=== PATIENT | female | born 2000 | race Caucasian/White ===

== ENCOUNTER 2023-11-01 06:59 | Emergency (ER) | payer BC, SELFPAY ==
[2023-11-01] VITALS (8 sets, daily range): BP systolic 95–113; BP diastolic 57–68; BMI 36.0
--- NOTE | 2023-11-01 07:23 | ED.GENMED ---
History of Present Illness
General
Chief Complaint: Chest Pain
Source: patient
Exam Limitations: none
Time Seen by Provider: 11/01/23 07:03
Nursing documentation reviewed up to this point in time: agreed with
History of Present Illness
History of Present Illness:
23-year-old female past medical history of frequent migraines GERD presenting to the emergency department today with concerns of central chest ache described as dull with some radiation to the back associated nausea vomited 1 time prior to arrival
had some mild shortness of breath initially but not ongoing. Denies any recent fevers chills upper respiratory symptoms was doing some heavy lifting yesterday. Does have a history of costochondritis.
Review of Systems
Review of Systems
Allergies reviewed?: Yes
All Other Systems: ROS reviewed and negative except as documented in HPI and ROS
Phy Exam
Physical Exam
Physical Exam:
GENERAL: Alert , in no apparent distress
EYE: pupils equal and reactive
NECK: Supple, no significant adenopathy.
ENT: o/p clr, mmm.
CARDIAC: Chest pain reproducible to palpation to the central chest no overlying skin changes regular rate and rhythm .
LUNGS: Clear breath sounds bilaterally, no acute respiratory distress, no wheezes/rales/rhonchi
ABDOMEN: Soft, without focal tenderness, no r/g, no cvat
NEUROLOGICAL: Alert and oriented, no focal neuro deficits
SKIN: Warm and dry, skin intact.
MUSCULOSKELETAL: No edema, well perfused.
PSYCH: Normal and appropriate interaction.
Scores
Heart Score for Chest Pain Patients
STEMI patient?: No
History: Slightly or Non-Suspicious
ECG: Normal
Age: </= 45 years
Risk Factors: No Risk Factors
Troponin: </= Normal Limit
Heart Score for Chest Pain Patients: 0
Heart Score Risk: 2.5% MACE over next 6 weeks
Course
Orders/Labs/Results
Orders:
Orders
11/01/23 07:01
EKG [Electrocardiogram (*1)] Urgent
Reason for Study: Chest Pain
11/01/23 07:02
EKG- Treatment ONCE
11/01/23 07:04
CR Chest - 2 Views Urgent
Comment:
Reason For Exam: chest pain
11/01/23 07:19
Famotidine [Pepcid] 20 mg IV NOW STA
Ketorolac [Toradol] 15 mg IV NOW STA
11/01/23 07:21
CMP [Comprehensive Metabolic Panel] Urgent
Complete Blood Count/With Diff Urgent
Lipase Urgent
Comment: ADD ON
Troponin I Urgent
11/01/23 07:29
Add On- LAB Urgent
Tests Added?: lipase
11/01/23 10:35
EKG [Electrocardiogram (*1)] Urgent
Reason for Study: Chest Pain
Comment: 2nd trop
EKG- Treatment ONCE
11/01/23 10:46
Troponin I Urgent
Abnormal Lab Results
11/01/23
07:21
Hgb 11.9 L g/dL
(12.0-16.0)
Hct 34.9 L %
(37.0-47.0)
MCV 79.7 L fL
(81.0-99.0)
MPV 10.9 H fL
(7.4-10.4)
Absolute Lymphs (auto) 3.5 H 10^3/uL
(1.2-3.4)
BUN 21 H mg/dl
(7-17)
Glucose 126 H mg/dl
(70-99)
AST 55 H U/L
(14-36)
11/01/23 07:21
11/01/23 07:21
Vital Signs
Initial and Last Documented VS:
Initial Vital Signs
Temp Pulse Resp BP Pulse Ox
97.8 F 73 18 113/65 99
11/01/23 07:02 11/01/23 07:02 11/01/23 07:02 11/01/23 07:02 11/01/23 07:02
Last Documented Vital Signs
Temp Pulse Resp BP Pulse Ox
97.8 F 85 21 100/57 99
11/01/23 07:12 11/01/23 08:15 11/01/23 08:15 11/01/23 08:00 11/01/23 07:14
MDM/Problems Addressed
MDM/Problems Addressed:
23-year-old female presenting to the emergency department today with concerns of a central chest dull ache with some radiation to the back had initial nausea and 1 episode of vomiting. Mildly short of breath initially but none ongoing. She does
take control pill but that it is progesterone only no recent trauma surgery immobilization or other clot risk factors no leg swelling. Clinically low risk for PE EKG normal heart rate normal pulse ox 99%. Chest pain is reproducible to
palpation. Troponin negative x 2 labs unremarkable chest x-ray normal. Symptoms resolved after receiving Toradol. Stable for outpatient management likely costochondritis. Return precautions given.
*Critical Care Note
Total Time (30-74mins, 75-104mins- exclusive of procedures): Not Applicable
ED Attending Note
-
Portions of this chart may have been created with voice recognition software.� Occasional wrong word or��sound alike� substitutions may have occurred due to the inherent limitations of voice recognition software.
Discharge Plan
Departure
Patient Disposition: Home (Routine Discharge)
Date of Disposition: 11/01/23
Time of Disposition: 11:16
Patient with high blood pressure during this ER visit?: No
Condition: Good
Covid-19: Not Applicable
Discharge Problem:
Chest pain
Instructions: Chest Pain That Is Not Caused by the Heart (DC)
Referrals:
Panda Bailey DO [Family Provider] -
Activity Restrictions/Additional Instructions:
You came to the emergency department today with concerns of chest discomfort. Here you had a reassuring assessment. Please follow up closely with the primary care doctor. Return to the emergency department for any worsening, new or concerning
symptoms.
Interventions
Interventions:
*Risk Screen - Suicide Last Done: 11/01/23 07:02
*General Assessment Last Done: 11/01/23 07:02
*Neglect/Abuse Screening Last Done: 11/01/23 07:02
ED- Fall Risk Assessment Last Done: 11/01/23 07:14
*ED COVID-19 Vaccine History Last Done: 11/01/23 07:02
ED- Cardiac Assessment Last Done: 11/01/23 07:14
Discharge Date and Time
Print Language: UGANDAN
[2023-11-01] MEDS: PEPCID 20 MG IV (07:25)
[2023-11-01] MEDS: TORADOL 15 MG IV (07:25)
[2023-11-01 07:35] LABS: % Basophils 0.3 % (0-2); % Eosinophils 1.1 % (0-6); % Immature Granulocytes 0.3 % (0-0.5); % Lymphocytes 32.4 % (20.5-51.1); % Monocytes 5.9 % (1.7-9.3); Absolute Eosinophils 0.1 10^3/uL (0-0.7); Absolute Lymphocytes 3.5 10^3/uL (1.2-3.4); Absolute Monocytes 0.6 10^3/uL (0.1-0.6); Absolute Neutrophils 6.4 10^3/uL (1.4-6.5); Hematocrit 34.9 % (37.0-47.0); Hemoglobin 11.9 g/dL (12.0-16.0); Mean Corp Hgb Conc. 34.1 g/dL (33.0-37.0); Mean Corpuscular Hgb 27.2 pg (27.0-31.0); Mean Corpuscular Volume 79.7 fL (81.0-99.0); Mean Platelet Volume 10.9 fL (7.4-10.4); Nucleated Red Blood Cells % 0 %; Platelet Count 241 10^3/uL (130-400); Red Blood Cell Count 4.38 10^6/uL (4.20-5.40); White Blood Cell Count 10.7 10^3/uL (4.8-10.8)
[2023-11-01 07:56] LABS: ALT (SGPT) 31 U/L (0-35); AST (SGOT) 55 U/L (14-36); Alkaline Phosphatase 105 U/L (38-126); Blood Urea Nitrogen 21 mg/dl (7-17); Calcium 9.4 mg/dl (8.4-10.2); Carbon Dioxide 22 mmol/L (22-30); Chloride 106 mmol/L (98-107); Estimated Creatinine Clearance > 125 ml/min; Glucose 126 mg/dl (70-99); Lipase 103 U/L (23-300); Sodium 141 mmol/L (135-145); Total Bilirubin 0.6 mg/dl (0.2-1.3); Total Protein 6.4 g/dl (6.3-8.2); eGFR > 60.00
[2023-11-01 08:08] LABS: Troponin I < 0.012 ng/ml
[2023-11-01 11:24] LABS: Troponin I < 0.012 ng/ml
--- NOTE | 2023-11-01 11:58 | EDRN ---
Reviewed discharge instructions with patient. Verbalized understanding.
== END 2023-11-01 12:07 | disposition home or self-care (01) ==
LOC: EMR 06:59
PROVIDERS: Emergency Medicine; Physician Assistant; EMERGENCY PHYSICIAN Emergency Medicine; FAMILY PHYSICIAN Family Medicine
DX: R07.89 Other chest pain (principal); K21.9 Gastro-esophageal reflux disease without esophagitis
CPT/HCPCS: 99285; 96374; 96375; 71046; 80053; 83690; 84484; 85025; 93005

== ENCOUNTER 2024-08-05 22:21 | Emergency (ER) | payer BC, SELFPAY ==
[2024-08-05 22:22] VITALS: BP 156/86
[2024-08-05 22:38] LABS: % Basophils 0.6 % (0-2); % Eosinophils 1.5 % (0-6); % Immature Granulocytes 0.1 % (0-0.5); % Lymphocytes 44.6 % (20.5-51.1); % Monocytes 6.8 % (1.7-9.3); % Neutrophils 46.4 % (42.2-75.2); Absolute Basophils 0.1 10^3/uL (0-0.2); Absolute Eosinophils 0.1 10^3/uL (0-0.7); Absolute Lymphocytes 3.6 10^3/uL (1.2-3.4); Absolute Monocytes 0.5 10^3/uL (0.1-0.6); Absolute Neutrophils 3.7 10^3/uL (1.4-6.5); Hematocrit 36.9 % (37.0-47.0); Hemoglobin 12.8 g/dL (12.0-16.0); Mean Corp Hgb Conc. 34.7 g/dL (33.0-37.0); Mean Corpuscular Hgb 28.4 pg (27.0-31.0); Mean Corpuscular Volume 81.8 fL (81.0-99.0); Mean Platelet Volume 10.6 fL (7.4-10.4); Nucleated Red Blood Cells % 0 %; Platelet Count 240 10^3/uL (130-400); Red Blood Cell Count 4.51 10^6/uL (4.20-5.40); Red Cell Dist. Width 12.4 % (11.5-14.5)
[2024-08-05 22:50] LABS: HCG, Serum Qualitative Screen Negative
[2024-08-05 23:00] LABS: ALT (SGPT) 18 U/L (0-35); AST (SGOT) 21 U/L (14-36); Albumin 4.7 g/dl (3.5-5.0); Alkaline Phosphatase 77 U/L (38-126); Blood Urea Nitrogen 11 mg/dl (7-17); Calcium 9.6 mg/dl (8.4-10.2); Carbon Dioxide 26 mmol/L (22-30); Chloride 106 mmol/L (98-107); Glucose 102 mg/dl (70-99); Lipase 103 U/L (23-300); Potassium 4.1 mmol/L (3.5-5.1); Sodium 140 mmol/L (135-145); Total Bilirubin 0.5 mg/dl (0.2-1.3); Total Protein 7.6 g/dl (6.3-8.2); eGFR > 60.00
[2024-08-06 01:24] VITALS: BMI 36.4
[2024-08-06 01:29] VITALS: BP 119/85
[2024-08-06 03:34] VITALS: BP 122/76
--- NOTE | 2024-08-06 03:36 | ED.GENMED ---
History of Present Illness
General
Chief Complaint: Abdominal Pain
Source: patient
Exam Limitations: none
Time Seen by Provider: 08/06/24 01:27
Nursing documentation reviewed up to this point in time: agreed with
History of Present Illness
History of Present Illness:
23-year-old female with history GERD who presents to the emergency department with severe upper abdominal pain. Patient states symptoms started around 10 PM this evening after eating a bagel with light cream cheese. She reports associated nausea
although no vomiting. At time of evaluation�symptoms have resolved completely. Patient reports very similar episode of pain last night which woke her from sleep in the middle the night and included severe upper abdominal pain associated with
nausea and vomiting. This occurred following a dinner of fish and chips and ice cream.
Patient denies any associated fever or chills. No chest pain, shortness of breath, or radiation of pain to back. No diarrhea, constipation, or dysuria.
Patient believes that she was told many years ago that she may have gallstones.
Review of Systems
Review of Systems
Allergies reviewed?: Yes
All Other Systems: ROS reviewed and negative except as documented in HPI and ROS
Phy Exam
Physical Exam
Physical Exam:
Vitals: Patient's vital signs are stable. Afebrile
General: Patient is well appearing, no acute distress. Nontoxic appearing
Skin: Warm and dry, no rashes or lesions
Head: Normocephalic, atraumatic
Eyes: Sclera nonicteric.
Throat: Protecting airway
Neck: Normal ROM, no cervical spine tenderness, no meningismus
Cardiac: Regular rate and rhythm, no murmurs.
Pulm: Normal respiratory effort, no wheezes, rales, rhonchi heard on exam
Abdomen: Abdomen soft and nontender. No tenderness in epigastric region or right upper quadrant. Negative Strong sign. No tenderness to McBurney's point.
Extremities: No evidence of cyanosis or edema. Palpable DP pulses bilaterally
Neuro: AAOx3. Grossly intact
Psychiatric: Normal affect.
Course
Orders/Labs/Results
Orders:
Orders
08/05/24 22:25
Test Result ONCE
08/05/24 22:29
Complete Blood Count/With Diff Urgent
Comprehensive Metabolic Panel Urgent
HCG, Serum Qualitative Screen Urgent
Lipase Urgent
08/06/24 02:00
US Abdomen Complete/Upper Urgent
Comment: hx gallstones
Reason For Exam: Epigastric/ right upper quadrant pain, +N/V
Abnormal Lab Results
08/05/24
22:29
Hct 36.9 L %
(37.0-47.0)
MPV 10.6 H fL
(7.4-10.4)
Absolute Lymphs (auto) 3.6 H 10^3/uL
(1.2-3.4)
Glucose 102 H mg/dl
(70-99)
08/05/24 22:29
08/05/24 22:29
Vital Signs
Initial and Last Documented VS:
Initial Vital Signs
Temp Pulse Resp BP Pulse Ox
98.2 F 84 18 156/86 96
08/05/24 22:22 08/05/24 22:22 08/05/24 22:22 08/05/24 22:22 08/05/24 22:22
Last Documented Vital Signs
Temp Pulse Resp BP Pulse Ox
98.2 F 72 16 122/76 100
08/05/24 22:22 08/06/24 03:34 08/06/24 01:29 08/06/24 03:34 08/06/24 03:34
MDM/Problems Addressed
Differential Diagnosis Includes:
Not limited to: Biliary colic, acute cholecystitis, choledocholithiasis, pancreatitis, GERD, gastritis, etc.
MDM/Problems Addressed:
23-year-old female who presents with postprandial upper abdominal discomfort associated with nausea, vomiting which has resolved by my assessment. Patient had 2 episodes of upper abdominal pain, 1 last night and 1 today. She is completely
asymptomatic without pain at this time. No associated fever, chest pain, shortness of breath. Patient mildly hypertensive on arrival although improved by my assessment. Her vital signs are otherwise stable and she is afebrile. Physical exam as
above. Symptoms very consistent with biliary colic. Other considerations include acute cholecystitis, pancreatitis, GERD, etc. Basic labs were sent prior to my evaluation. CBC without acute abnormalities, no leukocytosis. Chemistry unremarkable
without any elevation in LFTs and lipase normal. Will obtain abdominal ultrasound and reassess. Patient declines any analgesia at this time.
Update: Abdominal ultrasound reveals gallstone filled gallbladder without any pericholecystic fluid or other evidence of acute cholecystitis. On reassessment�patients abdomen remains completely soft and nontender. She has been asymptomatic in the
emergency department and afebrile. Symptoms most consistent with biliary colic. Given patient is afebrile with no leukocytosis or LFT elevation and no imaging findings consistent with acute cholecystitis�feel stable for discharge home with
outpatient general surgery follow-up. Patient comfortable with this plan. Discussed strict return precautions and advised low-fat diet.
Chronic conditions affecting care:
History of gallstones
Acute Exacerbation and/or Progression of Chronic Illness:
Acute exacerbation of biliary colic
*Radiology
Radiology exam reviewed: radiology read reviewed
*Pulse Oximetry
SaO2: 100
Oxygen Mode of Delivery: Room air
Patient hypoxic: no
*EKG
Interpreted by ED Provider?: NA
*Hand Cigar Making Supervisor Interpretation
Rate: Hand Cigar Making Supervisor- N/A
*Critical Care Note
Total Time (30-74mins, 75-104mins- exclusive of procedures): Not Applicable
Patient Management
Escalation/DeEscalation of care consider admission/obs:
Considered admission however patient symptoms have completely resolved she is normal white blood cell count and LFTs and no evidence of infection on ultrasound�feel stable for discharge home with outpatient general surgery
ED Attending Note
-
Portions of this chart may have been created with voice recognition software.� Occasional wrong word or��sound alike� substitutions may have occurred due to the inherent limitations of voice recognition software.
Discharge Plan
Departure
Patient Disposition: Home (Routine Discharge)
Date of Disposition: 08/06/24
Time of Disposition: 03:24
Patient with high blood pressure during this ER visit?: Yes
Condition: Good
Covid-19: Not Applicable
Discharge Problem:
Biliary colic
Instructions: Gallstones (DC), Low-fat diet, BLOOD PRESSURE
Prescriptions:
No Action
sertraline [Zoloft] 100 mg Tablet
200 mg PO HS
norethindrone (contraceptive) [Norlyda] 0.35 mg Tablet
0.35 mg PO DAILY
Referrals:
Juan Smith MD [Active, Surgical] - Next open appointment
Panda Bailey DO [Family Provider, Family Practice]
Activity Restrictions/Additional Instructions:
RETURN TO THE EMERGENCY DEPARTMENT WITH ANY PERSISTENT/SEVERE UPPER ABDOMINAL PAIN, FEVERS, INTRACTABLE NAUSEA/VOMITING, SEVERE BACK PAIN, WORSENING CURRENT SYMPTOMS, OR ANY OTHER CONCERNS
- As discussed�your ultrasound revealed numerous gallstones today. This is likely the cause of your symptoms.
- You should adhere to a low-fat diet. Stay well-hydrated.
- Follow-up with primary care and general surgery for further evaluation/management to ensure that symptoms are improving. Contact information for a general surgeon has been provided for you above.
Monitor your symptoms closely and return to the emergency department with any acute worsening/new symptoms or any other concerns
Interventions
Interventions:
*Risk Screen - Suicide Last Done: 08/06/24 01:17
*General Assessment Last Done: 08/05/24 22:22
*Neglect/Abuse Screening Last Done: 08/06/24 01:17
*ED- Fall Risk Assessment Last Done: 08/06/24 01:17
*ED COVID-19 Vaccine History Last Done: 08/06/24 01:17
MV-Qkbfac-Wroydaznkf Assessment Last Done: 08/06/24 01:17
Discharge Date and Time
Print Language: UPPER SORBIAN
== END 2024-08-06 04:00 | disposition home or self-care (01) ==
LOC: EMR 22:21
PROVIDERS: Emergency Medicine; EMERGENCY PHYSICIAN Emergency Medicine; FAMILY PHYSICIAN Family Medicine
DX: K80.70 Calculus of gallbladder and bile duct without cholecystitis without obstruction (principal); K21.9 Gastro-esophageal reflux disease without esophagitis
CPT/HCPCS: 99284; 76700; 80053; 83690; 84703; 85025

== ENCOUNTER 2024-10-05 23:10 | Emergency (ER) | payer BC, SELFPAY ==
[2024-10-05 23:13] VITALS: BP 123/71
[2024-10-05 23:24] LABS: Hematocrit 36.5 % (37.0-47.0); Hemoglobin 12.9 g/dL (12.0-16.0); Mean Corp Hgb Conc. 35.3 g/dL (33.0-37.0); Mean Corpuscular Volume 79.7 fL (81.0-99.0); Nucleated Red Blood Cells % 0 %; Platelet Count 264 10^3/uL (130-400); Red Cell Dist. Width 12.5 % (11.5-14.5)
[2024-10-05 23:38] LABS: HCG, Serum Qualitative Screen Negative
[2024-10-05 23:42] LABS: ALT (SGPT) 18 U/L (0-35); AST (SGOT) 23 U/L (14-36); Albumin 4.7 g/dl (3.5-5.0); Alkaline Phosphatase 89 U/L (38-126); Blood Urea Nitrogen 18 mg/dl (7-17); Calcium 9.2 mg/dl (8.4-10.2); Carbon Dioxide 23 mmol/L (22-30); Chloride 108 mmol/L (98-107); Glucose 132 mg/dl (70-99); Lipase 175 U/L (23-300); Potassium 3.9 mmol/L (3.5-5.1); Sodium 140 mmol/L (135-145); Total Protein 7.4 g/dl (6.3-8.2); eGFR > 60.00
--- NOTE | 2024-10-06 00:05 | ED.GENMED ---
History of Present Illness
<Shailesh Madera MD, Resident - Last Filed: 10/06/24 00:53>
General
Chief Complaint: Abdominal Pain
Source: patient
Time Seen by Provider: 10/06/24 00:04
History of Present Illness
History of Present Illness:
Patient is a 24-year-old female with a history of recently seen in July of this year acute abdominal pain later found to be cholelithiasis. She has a past medical history of cholelithiasis and endometriosis. Patient was in her normal state of
health this evening until she had a large serving at a restaurant of possibly fatty food. She had a chicken Parmesan that was requested to be made without frying and she had a large portion of chocolate cake. On the way home she had acute
abdominal pain rated at a 10 out of 10 similar to prior to the pain that brought her to the emergency department in July. Her family brought her to the emergency department and on the way to the emergency department the pain subsided and completely
resolved. During the episode of pain she had a chest tightness and pain that radiated throughout the upper back and mid abdominal region. She did not have any vomiting or diarrhea. During her episode of abdominal pain she was bloated and her
abdomen was noticeably larger than her usual baseline. As the pain resolves her bloating and abdominal size decreased. She is able to pass flatus normally.
Review of Systems
<Shailesh Madera MD, Resident - Last Filed: 10/06/24 00:53>
Review of Systems
Constitutional: Reports no symptoms
EENT: Reports no symptoms
Respiratory: Reports no symptoms
Cardiac: Reports no symptoms
ABD/GI: Reports abdominal pain ( Initially 10 out of 10 pain now rated at a 1 out of 10)
: Reports no symptoms
Musculoskeletal: Reports no symptoms
Skin: Reports no symptoms
Neurological: Reports no symptoms
Endocrine: Reports no symptoms
Hematologic/Lymphatic: Reports no symptoms
Psychiatric: Reports no symptoms
Phy Exam
<Shailesh Madera MD, Resident - Last Filed: 10/06/24 00:53>
General Physical Exam
General Presentation: well appearing and no apparent distress
General age: appears stated age
General Skin: warm and dry
General Habitus: normal
General Mental: alert
General Hydration: appears well hydrated
ENT Exam
ENT Exam: EOMI
Eye Exam
Eye Exam: PERRL
Pulmonary Exam
Pulmonary Exam: lungs clear, no respiratory distress, no rales, chest non tender, no crackles, no rhonchi, no stridor, no wheezing and no cough
Cough: no cough
Gastrointestinal Exam
Gastrointestinal Exam: normal bowel sounds, non tender, soft, no organomegaly, no pulsatile mass, non distended and no cva tenderness
Auscultation of Abdomen: normal
Psychiatric Exam
Psychiatric Exam: normal mood/affect
Course
<Shailesh Madera MD, Resident - Last Filed: 10/06/24 00:53>
Orders/Labs/Results
Orders:
Orders
10/05/24 23:15
Test Result ONCE
10/05/24 23:19
Complete Blood Count/With Diff Urgent
Comprehensive Metabolic Panel Urgent
HCG, Serum Qualitative Screen Urgent
Comment: Notify provider if positive test present
Lipase Urgent
Abnormal Lab Results
10/05/24
23:19
WBC 13.1 H 10^3/uL
(4.8-10.8)
Hct 36.5 L %
(37.0-47.0)
MCV 79.7 L fL
(81.0-99.0)
Absolute Neuts (auto) 6.7 H 10^3/uL
(1.4-6.5)
Absolute Lymphs (auto) 5.3 H 10^3/uL
(1.2-3.4)
Absolute Monos (auto) 0.7 H 10^3/uL
(0.1-0.6)
Chloride 108 H mmol/L
(98-107)
BUN 18 H mg/dl
(7-17)
Glucose 132 H mg/dl
(70-99)
10/05/24 23:19
10/05/24 23:19
Vital Signs
Initial and Last Documented VS:
Initial Vital Signs
Temp Pulse Resp BP Pulse Ox
97.3 F 86 16 123/71 96
10/05/24 23:13 10/05/24 23:13 10/05/24 23:13 10/05/24 23:13 10/05/24 23:13
Last Documented Vital Signs
Temp Pulse Resp BP Pulse Ox
97.3 F 86 16 123/71 96
10/05/24 23:13 10/05/24 23:13 10/05/24 23:13 10/05/24 23:13 10/06/24 00:06
<Briana Hernandes, DO - Last Filed: 10/06/24 01:00>
Orders/Labs/Results
Orders:
Orders
10/05/24 23:15
Test Result ONCE
10/05/24 23:19
Complete Blood Count/With Diff Urgent
Comprehensive Metabolic Panel Urgent
HCG, Serum Qualitative Screen Urgent
Comment: Notify provider if positive test present
Lipase Urgent
Abnormal Lab Results
10/05/24
23:19
WBC 13.1 H 10^3/uL
(4.8-10.8)
Hct 36.5 L %
(37.0-47.0)
MCV 79.7 L fL
(81.0-99.0)
Absolute Neuts (auto) 6.7 H 10^3/uL
(1.4-6.5)
Absolute Lymphs (auto) 5.3 H 10^3/uL
(1.2-3.4)
Absolute Monos (auto) 0.7 H 10^3/uL
(0.1-0.6)
Chloride 108 H mmol/L
(98-107)
BUN 18 H mg/dl
(7-17)
Glucose 132 H mg/dl
(70-99)
10/05/24 23:19
10/05/24 23:19
Vital Signs
Initial and Last Documented VS:
Initial Vital Signs
Temp Pulse Resp BP Pulse Ox
97.3 F 86 16 123/71 96
10/05/24 23:13 10/05/24 23:13 10/05/24 23:13 10/05/24 23:13 10/05/24 23:13
Last Documented Vital Signs
Temp Pulse Resp BP Pulse Ox
97.3 F 86 16 123/71 96
10/05/24 23:13 10/05/24 23:13 10/05/24 23:13 10/05/24 23:13 10/06/24 00:06
<Shailesh Madera MD, Resident - Last Filed: 10/06/24 00:53>
*Pulse Oximetry
SaO2: 96
Oxygen Mode of Delivery: Room air
Patient hypoxic: no
*Critical Care Note
Total Time (30-74mins, 75-104mins- exclusive of procedures): 60
<Shailesh Madera MD, Resident - Last Filed: 10/06/24 00:53>
Update Note
Update Note:
Problem List:
Abdominal pain
cholelithiasis
leukocytosis
Plan:
CBC and BMP ordered
Supportive care
Antiemetic and analgesics
Differential Diagnoses:
biliary colic
cholelithiasis
pancreatitis
GERD
Radiology:
not applicable
EKG:
not applicable
Labs:
CBC with leukocytosis, BMP unremarkable
Updates:
CBC with leukocytosis and BMP is unremarkable
abdominal pain completely resolved with no right upper quadrant pain or signs of acute abdomen
patient would like to be discharged and believe she is back at baseline.
Patient will be sent home with Percocet and ibuprofen
patient advised to adhere to low fat diet to avoid further exacerbation
patient should follow-up with her primary care provider following discharge
patient scheduled to undergo elective cholecystectomy January
ED Attending Note
<Shailesh Madera MD, Resident - Last Filed: 10/06/24 00:53>
-
Portions of this chart may have been created with voice recognition software.� Occasional wrong word or��sound alike� substitutions may have occurred due to the inherent limitations of voice recognition software.
<Briana Hernandes DO - Last Filed: 10/06/24 01:00>
ED Attending Note
Patient seen and examined by attending physician: Yes
I performed a history and physical exam of patient and discussed management with resident, I reviewed resident's note and agree with documented findings and plan of care.: Yes
ED Attending Note:
This is a 24-year-old woman with known history of gallstones presents with recurrent moderate to severe right upper quadrant pain that began this evening after eating chicken Parmesan and chocolate cake for dinner. Very similar right upper quadrant
pain for which she presented to this ED August 06. Laboratory studies unremarkable at that time and ultrasound shows multiple gallstones but no evidence of cholecystitis. She has since followed up with a general surgeon through [facility]
(covered under her mother's insurance through [employer] thus capitated to [facility]) and is scheduled for cholecystectomy in January.
Since that episode August 06 she has been maintaining a strict low-fat diet until tonight.
She notes moderate right upper quadrant pain which has since resolved just prior to arrival to the ED. Now feeling well, no return of pain. No nausea or vomiting. No fever.
No other associated symptoms.
24-year-old overweight female appears her stated age, bright and alert, pleasant, appears in no acute distress. Accompanied by her father.
Abdomen is soft, nondistended, nontender. No palpable masses. Normoactive bowel sounds.
History and exam most consistent with recurrent biliary colic.
Labs note mildly elevated white blood cell count but again normal LFTs, normal lipase.
As patient is pain-free and comfortable and abdomen is soft, nontender, acute cholecystitis is unlikely. At this point no indication for repeat imaging.
Discussed importance of resumption of strict low-fat diet.
Will plan to write a prescription for a few Percocet as well as ibuprofen for as needed return of pain and Zofran for as needed nausea. If this medication combination is ineffective in relief of pain or if she has return of pain accompanied with
intractable vomiting or with fever recommend prompt return to the ER for further evaluation.
Discharge Plan
Departure
Patient Disposition: Home (Routine Discharge)
Date of Disposition: 10/06/24
Time of Disposition: 00:48
Patient with high blood pressure during this ER visit?: No
Condition: Good
Discharge Problem:
acute biliary colic, Cholelithiasis
Instructions: Gallstones (DC), Low-fat diet
Prescriptions:
New
oxycodone-acetaminophen [Percocet] 5-325 mg Tablet
1 tab PO Q6HPRN PRN (Reason: pain) Qty: 6 0RF
ibuprofen 600 mg tablet
600 mg PO Q6H PRN (Reason: fever or pain) Qty: 30 0RF
ondansetron 4 mg tablet,disintegrating
4 mg PO QID PRN (Reason: nausea and vomiting) Qty: 20 0RF
No Action
sertraline [Zoloft] 100 mg Tablet
200 mg PO HS
norethindrone (contraceptive) [Norlyda] 0.35 mg Tablet
0.35 mg PO HS
multivitamin Tablet
1 tab PO HS
amoxicillin-pot clavulanate 875-125 mg Tablet
1 tab PO BID
melatonin 1 mg Tablet
1 mg PO HS
Probiotic
1 cap PO HS
Sudafed
1 tab PO DIRECTED
Vitamin D3
1 cap PO HS
magnesium
1 cap PO HS
Referrals:
Panda Bailey, [Family Provider, Family Practice]
Interventions
Interventions:
*Risk Screen - Suicide Last Done: 10/05/24 23:13
*General Assessment Last Done: 10/05/24 23:13
*Neglect/Abuse Screening Last Done: 10/05/24 23:13
*ED- Fall Risk Assessment Last Done: 10/06/24 00:34
*ED COVID-19 Vaccine History Last Done: 10/06/24 00:34
QM-Muqolw-Qnnzhxalyo Assessment Last Done: 10/06/24 00:33
Discharge Date and Time
Print Language: SCOTTISH
== END 2024-10-06 01:03 | disposition home or self-care (01) ==
LOC: EMR 23:10
PROVIDERS: EMERGENCY PHYSICIAN Emergency Medicine; FAMILY PHYSICIAN Family Medicine
DX: K80.70 Calculus of gallbladder and bile duct without cholecystitis without obstruction (principal)
CPT/HCPCS: 99283; 80053; 83690; 84703; 85025